=== PATIENT | female | born 1940 | race Caucasian/White ===

== ENCOUNTER 2023-06-26 14:35 | Emergency (ER) | payer MEDICARE, OTHER ==
[~2023-06-26] VITALS: Ht 157.5 cm; Wt 70.3 kg
[2023-06-26 15:41] LABS: BASO% 0.1 % (0-3); HEMATOCRIT 40.4 % (37.0-47.0); HEMOGLOBIN 13.9 g/dl (12.0-16.0); IMMATURE GRANULOCYTES 0.1 % (0.0-5.0); LYMPH% 5.8 % (15-41); MEAN CELL VOLUME 94.2 fL CALC (80.0-100.0); MEAN CORPUSCULAR HGB 32.4 pG CALC (26.0-32.0); MEAN CORPUSCULAR HGB CONC 34.4 g/dL CAL (32.0-36.0); MONO% 11.3 % (2-13); NEUT# 11.68 thou/uL (2.00-7.15); NEUT% 82.7 % (42-76); RED BLOOD COUNT 4.29 mill/uL (4.20-5.60); RED CELL DISTRI WIDTH 12.4 % (11.5-15.5)
[2023-06-26 16:11] LABS: ALKALINE PHOSPHATASE 81 u/l (38-126); ANION GAP 9 (6-22 (CALC)); BILIRUBIN, TOTAL 0.8 mg/dL (0.02-1.3); BUN 17 mg/dL (8-23); BUN/CREATININE RATIO 26 (12-20 (CALC)); CARBON DIOXIDE 26 mmol/l (22-30); CHLORIDE 94 mmol/l (95-108); CREATININE 0.7 mg/dL (0.5-1.0); GFR FOR AFR.AMER. > 60 ML/MIN (>=60 (CALC)); GFR OTHER RACES > 60 ML/MIN (>=60 (CALC)); POTASSIUM 3.3 mmol/l (3.5-5.1); SGOT/AST 49 u/l (9-36); SODIUM 126 mmol/l (137-146); TOTAL PROTEIN 7.3 g/dL (6.3-8.2)
[2023-06-26] MEDS ORDERED: BACTRIM DS1 TAB PO (16:23)
[2023-06-26] MEDS ORDERED: AMOX/K CLAV875 M1 PO (16:23)
[2023-06-26 16:33] VITALS: BP 162/87
== END 2023-06-26 16:54 | disposition home or self-care (01) ==
LOC: ED 14:35
PROVIDERS: Family Medicine
DX: L03.213 Periorbital cellulitis (principal); J32.0 Chronic maxillary sinusitis; E87.1 Hypo-osmolality and hyponatremia; I10 Essential (primary) hypertension; Z20.822 Contact with and (suspected) exposure to COVID-19